=== PATIENT | male | born 1945 | race Caucasian/White ===

== ENCOUNTER → 2016-09-10 | Outpatient (CLI) | payer MEDICARE, OTHER | END | disposition home or self-care (01) | LOC: GMAB 10:20 | PROVIDERS: ATTEND Family Medicine | DX: E03.9 Hypothyroidism, unspecified (principal); Z12.5 Encounter for screening for malignant neoplasm of prostate | CPT/HCPCS: 84439; 84443; 84481; G0103 ==

== ENCOUNTER 2016-11-26 05:46 | Day surgery (SDC) | payer MEDICARE, OTHER ==
[2016-11-26] MEDS ORDERED: LACTATED RINGERS 1,000 ML ONE (05:54)
[2016-11-26] MEDS ORDERED: PROPOFOL 200 MG/20 ML VIAL IV ONE (09:00)
--- NOTE | 2016-11-26 11:06 | OP ---
DATE OF PROCEDURE: 11/26/16 PREOPERATIVE DIAGNOSIS: 1. Personal history of adenomas in 2009. 2. Family history of colon cancer in his father. POSTOPERATIVE DIAGNOSIS: 1. Polyps of the ascending colon and sigmoid colon. 2. Diverticulosis. PROCEDURE: 1. Colonoscopy plus polypectomy. SURGEON: Abdullahi Herrera MD. COMPLICATIONS: None apparent. BLOOD LOSS: None. MEDICATIONS: Monitored anesthesia care. DESCRIPTION OF PROCEDURE: Informed consent was obtained prior to sedation. The preprocedure cardiopulmonary assessment was satisfactory. The patient was placed in the left lateral decubitus position and was sedated. A digital rectal exam was unremarkable. The tip of the Olympus colonoscope was inserted in the rectum and guided over to the cecum. The cecum was identified by locating the ileocecal valve and appendiceal orifice. Prep was good. The mucosa of the cecum, ascending colon, hepatic flexure, transverse colon, splenic flexure, descending colon and sigmoid colon was closely examined. Direct and retroflexed views of the rectum were obtained. There were three polyps identified. In the ascending colon, there was a 5 mm sessile polyp and a 6 mm sessile polyp. These were removed with a hot snare and recovered. In the sigmoid, there was a 4 mm sessile polyp that was removed with a cold snare and recovered. There was diverticulosis in the sigmoid colon. RECOMMENDATIONS: 1. Followup polyp pathology. 2. The patient is on Effient and can resume that in a few days. #[id number] cc: Phani Ventura MD MTDD
[2016-11-26 11:47] VITALS: O2SAT 97
[2016-11-26 11:49] VITALS: BP 131/79; TEMP 97.1
== END 2016-11-26 11:25 | disposition home or self-care (01) ==
LOC: AMB 05:46
PROVIDERS: ATTEND Internal Medicine Gastroenterology
DX: Z80.0 Family history of malignant neoplasm of digestive organs (principal); D12.2 Benign neoplasm of ascending colon; D12.5 Benign neoplasm of sigmoid colon; E78.00 Pure hypercholesterolemia, unspecified; E03.9 Hypothyroidism, unspecified; I10 Essential (primary) hypertension; I25.10 Atherosclerotic heart disease of native coronary artery without angina pectoris; I25.2 Old myocardial infarction; Z95.5 Presence of coronary angioplasty implant and graft; Z88.8 Allergy status to other drugs, medicaments and biological substances; Z79.82 Long term (current) use of aspirin; Z79.01 Long term (current) use of anticoagulants; Z79.899 Other long term (current) drug therapy
CPT/HCPCS: 00810; 45385; 88305; J7120

== ENCOUNTER → 2017-12-21 | Outpatient (CLI) | payer MEDICARE, OTHER | LOC: GMAE 12:33 | PROVIDERS: ATTEND Family Medicine | DX: E03.9 Hypothyroidism, unspecified (principal) ==

== ENCOUNTER → 2018-12-23 | Outpatient (CLI) | payer MEDICARE, OTHER | LOC: GMAE 12:09 | PROVIDERS: ATTEND Family Medicine | DX: Z12.5 Encounter for screening for malignant neoplasm of prostate (principal); I10 Essential (primary) hypertension | CPT/HCPCS: 84443; G0103 ==

== ENCOUNTER → 2020-02-09 | Outpatient (CLI) | payer MEDICARE ==
--- NOTE | 2020-02-10 14:57 | CT ---
EXAM DESCRIPTION: Chest w/Contrast CLINICAL HISTORY: 74 years, Male, ABNORMAL FINDING ON DIAGNOSTIC IMAGE ABNORMAL CXR COMPARISON: Previous chest x-ray February 09, 2020, chest x-ray August 30, 2015, previous CT chest February 07, 2014 TECHNIQUE: Thin-section noncontrast axial CT images are obtained according to our protocol. Reconstructed MPR images are created and reviewed as well. IV contrast was administered, Optiray 320 totaling 70 mL IV. FINDINGS: Lungs: Infiltrating mass is seen in the right retrohilar region involving the superior segment of the right lower lobe and extending inferiorly along the right mediastinum. This measures 6.2 x 5.7 x 10.7 cm and is most consistent with primary bronchogenic carcinoma Small satellite nodule posteriorly measures 1.1 cm.. Irregular nodular margin of the lesion is noted. Infiltration of the left pulmonary hilum is noted with a prominent left hilar node likely metastatic measuring 8 mm short axis dimension. Subcarinal node or cluster of nodes is likely metastatic measuring 2.7 x 1.7 cm. Smaller nodes are seen in the pretracheal and peritracheal regions. Small nodes in the AP window. The heart is enlarged. Extensive coronary arterial calcification. Numerous micronodules are seen in other areas of the lungs. These were present on the previous study in the appearance was consistent with indolent infection with fungal agent or atypical mycobacterium. On the present study, these 2 differential considerations are still valid in addition to lymphangitic carcinomatosis with some nodular areas of septal thickening. Severe emphysema is seen throughout both lungs. Question enlarged node behind the upper esophagus (axial image 11, series 2) measuring 1.3 cm. Chest wall/axilla: No mass or adenopathy. Lower neck/supraclavicular: No mass or adenopathy in these areas. Upper abdomen: Multiple calcified gallstones. Small low-density lesions in the anterior left lobe of liver, medial segment and lateral segment, likely cysts rather than metastases. Small cysts in these areas were seen on the previous CT chests which included the upper abdomen February 07, 2014. Small cyst in the upper poles of kidneys. Otherwise unremarkable upper abdominal viscera. IMPRESSION: Right lower lobe mass involving the right pulmonary hilum consistent with primary bronchogenic carcinoma. Enlarged right hilar and mediastinal lymph nodes likely metastatic. Small liver lesions consistent with cysts. Gallstones. This exam was performed according to our departmental dose-optimization program, which includes automated exposure control, adjustment of the mA and/or kV according to patient size and/or use of iterative reconstruction technique. Total DLP equals 611.49 mGycm. Electronically signed by: Ibrahima Levin MD 02/10/2020 2:56 PM [facility]
== END ==
LOC: CT 14:13
PROVIDERS: ATTEND Family Medicine
DX: R91.8 Other nonspecific abnormal finding of lung field (principal); R59.0 Localized enlarged lymph nodes; K76.9 Liver disease, unspecified; K80.20 Calculus of gallbladder without cholecystitis without obstruction; E03.9 Hypothyroidism, unspecified; E55.9 Vitamin D deficiency, unspecified; Z12.5 Encounter for screening for malignant neoplasm of prostate; E78.2 Mixed hyperlipidemia; I10 Essential (primary) hypertension
CPT/HCPCS: 71260; 82306; 84439; 84443; 84481; G0103